=== PATIENT | female | born 1995 | race Caucasian/White ===

== ENCOUNTER 2016-07-12 12:04 | Emergency (ER) | payer OTHER ==
[~2016-07-12] VITALS: Ht 154.9 cm; Wt 63.5 kg
[~2016-07-12 12:04] MED LIST: BROMOCRIPTINE2.5 M1 PO
[2016-07-12 12:12] VITALS: BP 132/76
--- NOTE | 2016-07-12 12:30 | NUR ---
Pt taken to bed 5.
--- NOTE | 2016-07-12 12:34 | NUR ---
21/F presents to ED for evaluation of cough, congestion, runny nose, x 3 days. Pt also c/o headache, sore throat and chest pain with cough only. Patient states "I got sent home from work." Patient reports having green phlegm production worse in the mornings. Patient is AOX4, ambulatory with steady gait. Pt appears calm and relaxed. No visible signs of distress noted.
--- NOTE | 2016-07-12 12:39 | NUR ---
Patient being evaluated by physician at bedside.
[2016-07-12 13:19] VITALS: BP 127/67
--- NOTE | 2016-07-12 13:20 | NUR ---
Chart checked and completed. The patient's care was reviewed and supervised by Juancho Parikh RN.
--- NOTE | 2016-07-12 13:20 | NUR ---
Patient discharged with v/s stable. Written and verbal after care instructions given and explained. Patient verbalized understanding. Ambulatory with steady gait. All questions addressed prior to discharge. Advised to follow up with PMD.
== END 2016-07-12 13:20 | disposition home or self-care (01) ==
LOC: MED 12:04
DX: J06.9 Acute upper respiratory infection, unspecified (principal); R07.89 Other chest pain; Z85.841 Personal history of malignant neoplasm of brain